=== PATIENT | male | born 1970 | race Caucasian/White ===

== ENCOUNTER 2017-05-18 12:53 | Inpatient (IN) | payer OTHER ==
[2017-05-18 16:04] VITALS: BMI 29.2
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
[2017-05-18] MEDS ORDERED: P-EPHED 60MG/TRIPROLIDI 2.5MG TABLET PO PRN (18:25)
[2017-05-18] MEDS ORDERED: guaiFENesin/D-METHORPHAN HB 10 ML UNIT-DOSE CUPS PO PRN (18:25)
[2017-05-18] MEDS ORDERED: MAG HYDROX/AL HYDROX/SIMETH 30 ML UNIT-DOSE CUP PO PRN (18:25)
[2017-05-18] MEDS ORDERED: MAGNESIUM HYDROX 2400MG/30ML ORAL SUSPENSION 30 ML CUP PO PRN (18:25)
[2017-05-18] MEDS ORDERED: IBUPROFEN 400 MG TABLET (FP) PO PRN ×2 (18:25→18:31)
[2017-05-18] MEDS ORDERED: MAGNESIUM CITRATE 300 ML BOTTLE PO PRN (18:25)
[2017-05-18] MEDS ORDERED: ACETAMINOPHEN 325 MG TABLET (FP) PO PRN (18:25)
[2017-05-18] MEDS ORDERED: LOPERAMIDE HCL 2 MG CAPSULE PO PRN (18:25)
[2017-05-18] MEDS ORDERED: MENTHOL/PHENOL 1 EACH UD MM PRN (18:25)
[2017-05-18] MEDS: THIAMINE HCL 100 MG TABLET (FP) PO SCH (21:30)
[2017-05-19 01:43] LABS: URINE APPEARANCE CLEAR; URINE BILIRUBIN NEGATIVE (NEGATIVE); URINE BLOOD NEGATIVE (NEGATIVE); URINE COLOR YELLOW; URINE GLUCOSE (UA) NEGATIVE (NEGATIVE); URINE KETONE NEGATIVE (NEGATIVE); URINE LEUK ESTERASE TRACE (NEGATIVE); URINE NITRITE NEGATIVE (NEGATIVE); URINE PROTEIN NEGATIVE (NEGATIVE)
[2017-05-19 01:59] LABS: URINE MUCUS RARE; URINE RBC 1 /hpf (0-3); URINE WBC 1 /hpf (3-5)
[2017-05-19] MEDS ORDERED: METHADONE HCL 10 MG TABLET PO SCH (09:15)
[2017-05-19] MEDS ORDERED: METHADONE HCL 40 MG DISPERSABLE TABLET ONE (10:30)
[2017-05-19] MEDS ORDERED: METHADONE HCL 10 MG TABLET ONE (10:30)
[2017-05-19] MEDS ORDERED: METHADONE 80 MG, METHADONE 20 MG PO ONE (10:30)
[2017-05-19] MEDS: PRENATAL VITAMINS W/ FOLIC ACID TABLET (FP) PO SCH (10:33)
[2017-05-19] MEDS: hydrOXYzine PAMOATE 50 MG CAPSULE (FP) PO PRN (10:35)
[2017-05-19 10:40] LABS: MCH 34.6 pg (25.7-33.7); MCHC 34.4 g/dl (32.0-35.9); MEAN CELL VOLUME 100.7 fl (80-96); MEAN PLT VOLUME 10.5 fl (7.5-11.1); PLATELET COUNT 136 K/MM3 (134-434); RDW 13.4 % (11.9-15.9); WHITE BLOOD COUNT 6.6 K/mm3 (4.0-10.0)
[2017-05-19 10:44] LABS: ALBUMIN 3.5 g/dl (3.4-5.0); ANION GAP 3 (8-16); BILIRUBIN,TOTAL 0.3 mg/dL (0.2-1.0); CALCIUM 8.9 mg/dL (8.5-10.1); CO2 35 mmol/L (21-32); CREATININE 0.9 mg/dL (0.7-1.3); GLUCOSE,RANDOM 72 mg/dL (74-106); SGOT/AST 27 U/L (15-37); SGPT/ALT 20 U/L (12-78); TOT PROT 6.8 g/dl (6.4-8.2)
[2017-05-19 10:45] LABS: ALK PHOS 132 U/L (45-117)
[2017-05-19] MEDS: THIAMINE HCL 100 MG TABLET (FP) PO SCH (21:44)
[2017-05-19] MEDS: diphenhydrAMINE HCL 50 MG CAPSULE PO PRN (21:45)
[2017-05-20] MEDS ORDERED: METHADONE HCL 10 MG TABLET ONE (05:34)
[2017-05-20] MEDS ORDERED: METHADONE HCL 40 MG DISPERSABLE TABLET ONE (05:35)
[2017-05-20] MEDS: METHADONE 80 MG, METHADONE 20 MG PO SCH (06:36)
[2017-05-20] MEDS: hydrOXYzine PAMOATE 50 MG CAPSULE (FP) PO PRN ×2 (10:15→14:35)
[2017-05-20] MEDS: PRENATAL VITAMINS W/ FOLIC ACID TABLET (FP) PO SCH (10:15)
[2017-05-20] MEDS: THIAMINE HCL 100 MG TABLET (FP) PO SCH (21:45)
[2017-05-20] MEDS: diphenhydrAMINE HCL 50 MG CAPSULE PO PRN (21:45)
[2017-05-21] MEDS: diphenhydrAMINE HCL 50 MG CAPSULE PO PRN (00:21)
[2017-05-21] MEDS ORDERED: METHADONE HCL 10 MG TABLET ONE (03:42)
[2017-05-21] MEDS ORDERED: METHADONE HCL 40 MG DISPERSABLE TABLET ONE (03:43)
[2017-05-21] MEDS: hydrOXYzine PAMOATE 50 MG CAPSULE (FP) PO PRN ×4 (03:57→21:38)
[2017-05-21] MEDS: METHADONE 80 MG, METHADONE 20 MG PO SCH (06:38)
--- NOTE | 2017-05-21 09:59 | EKG ---
Test Reason : Blood Pressure : / mmHG Vent. Rate : 065 BPM Atrial Rate : 065 BPM P-R Int : 150 ms QRS Dur : 100 ms QT Int : 456 ms P-R-T Axes : 062 022 047 degrees QTc Int : 474 ms NORMAL SINUS RHYTHM NORMAL ECG NO PREVIOUS ECGS AVAILABLE Confirmed by PREETI ROGERS MD ([id number]) on 05/21/2017 9:59:04 AM Referred By: Florina Rangel Confirmed By:PREETI ROGERS MD
[2017-05-21] MEDS: PRENATAL VITAMINS W/ FOLIC ACID TABLET (FP) PO SCH (10:20)
--- NOTE | 2017-05-21 11:42 | PN ---
[facility] Progress Note Note: low back pain,chronic pain,herniated disc l4,l5 did not want lidoderm patch,motrin 600 mgs po q 6 hrs prn,
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
[2017-05-21] MEDS: THIAMINE HCL 100 MG TABLET (FP) PO SCH (21:38)
[2017-05-21] MEDS ORDERED: traZODone HCL 50 MG TABLET (FP) PO SCH (22:00)
[2017-05-22] MEDS: hydrOXYzine PAMOATE 50 MG CAPSULE (FP) PO PRN ×3 (01:55→21:55)
[2017-05-22] MEDS ORDERED: METHADONE HCL 40 MG DISPERSABLE TABLET ONE (03:24)
[2017-05-22] MEDS ORDERED: METHADONE HCL 10 MG TABLET ONE (03:24)
[2017-05-22] MEDS: METHADONE 80 MG, METHADONE 20 MG PO SCH (06:21)
[2017-05-22] MEDS: IBUPROFEN 600 MG TABLET (FP) PO PRN (08:42)
[2017-05-22] MEDS: PRENATAL VITAMINS W/ FOLIC ACID TABLET (FP) PO SCH (11:02)
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
[2017-05-22] MEDS: THIAMINE HCL 100 MG TABLET (FP) PO SCH (21:54)
[2017-05-22] MEDS: QUEtiapine FUMARATE 25 MG TABLET (FP) PO SCH (21:54)
[2017-05-23] MEDS ORDERED: METHADONE HCL 10 MG TABLET ONE (03:33)
[2017-05-23] MEDS ORDERED: METHADONE HCL 40 MG DISPERSABLE TABLET ONE (03:33)
[2017-05-23] MEDS: METHADONE 80 MG, METHADONE 20 MG PO SCH (06:46)
[2017-05-23] MEDS: hydrOXYzine PAMOATE 50 MG CAPSULE (FP) PO PRN ×2 (06:48→21:43)
[2017-05-23] MEDS: PRENATAL VITAMINS W/ FOLIC ACID TABLET (FP) PO SCH (10:18)
[2017-05-23] MEDS: QUEtiapine FUMARATE 25 MG TABLET (FP) PO SCH (21:42)
[2017-05-23] MEDS: THIAMINE HCL 100 MG TABLET (FP) PO SCH (21:43)
[2017-05-23] MEDS: IBUPROFEN 600 MG TABLET (FP) PO PRN (21:44)
[2017-05-24] MEDS ORDERED: METHADONE HCL 40 MG DISPERSABLE TABLET ONE (05:10)
[2017-05-24] MEDS ORDERED: METHADONE HCL 10 MG TABLET ONE (05:10)
[2017-05-24] MEDS: METHADONE 80 MG, METHADONE 20 MG PO SCH (06:23)
[2017-05-24] MEDS: hydrOXYzine PAMOATE 50 MG CAPSULE (FP) PO PRN ×3 (06:24→21:42)
[2017-05-24] MEDS: PRENATAL VITAMINS W/ FOLIC ACID TABLET (FP) PO SCH (10:23)
[2017-05-24] MEDS: QUEtiapine FUMARATE 25 MG TABLET (FP) PO SCH (21:41)
[2017-05-24] MEDS: THIAMINE HCL 100 MG TABLET (FP) PO SCH (21:43)
[2017-05-25] MEDS ORDERED: METHADONE HCL 40 MG DISPERSABLE TABLET ONE (04:17)
[2017-05-25] MEDS ORDERED: METHADONE HCL 10 MG TABLET ONE (04:17)
[2017-05-25] MEDS: METHADONE 80 MG, METHADONE 20 MG PO SCH (06:30)
[2017-05-25] MEDS: hydrOXYzine PAMOATE 50 MG CAPSULE (FP) PO PRN (06:32)
[2017-05-25] MEDS: PRENATAL VITAMINS W/ FOLIC ACID TABLET (FP) PO SCH (10:01)
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
[2017-05-25] MEDS: GABAPENTIN 300 MG CAPSULE (FP) PO SCH ×2 (13:12→21:49)
[2017-05-25] MEDS: diphenhydrAMINE HCL 50 MG CAPSULE PO PRN (21:49)
[2017-05-25] MEDS: THIAMINE HCL 100 MG TABLET (FP) PO SCH (21:49)
[2017-05-25] MEDS: QUEtiapine FUMARATE 25 MG TABLET (FP) PO SCH (21:49)
[2017-05-26] MEDS ORDERED: METHADONE HCL 40 MG DISPERSABLE TABLET PO SCH (06:00)
[2017-05-26] MEDS ORDERED: METHADONE HCL 40 MG DISPERSABLE TABLET ONE (06:17)
[2017-05-26] MEDS ORDERED: METHADONE HCL 10 MG TABLET ONE (06:17)
[2017-05-26] MEDS: GABAPENTIN 300 MG CAPSULE (FP) PO SCH ×3 (06:46→21:24)
[2017-05-26] MEDS: METHADONE 80 MG, METHADONE 20 MG PO SCH (06:46)
[2017-05-26] MEDS: PRENATAL VITAMINS W/ FOLIC ACID TABLET (FP) PO SCH (10:19)
[2017-05-26] MEDS: hydrOXYzine PAMOATE 50 MG CAPSULE (FP) PO PRN ×3 (10:20→21:26)
[2017-05-26] MEDS: QUEtiapine FUMARATE 25 MG TABLET (FP) PO SCH (21:24)
[2017-05-26] MEDS: THIAMINE HCL 100 MG TABLET (FP) PO SCH (21:24)
[2017-05-27] MEDS ORDERED: METHADONE HCL 10 MG TABLET ONE (05:21)
[2017-05-27] MEDS ORDERED: METHADONE HCL 40 MG DISPERSABLE TABLET ONE (05:22)
[2017-05-27] MEDS: GABAPENTIN 300 MG CAPSULE (FP) PO SCH ×3 (06:26→21:40)
[2017-05-27] MEDS: METHADONE 80 MG, METHADONE 20 MG PO SCH (06:26)
[2017-05-27] MEDS: PRENATAL VITAMINS W/ FOLIC ACID TABLET (FP) PO SCH (10:45)
[2017-05-27] MEDS: hydrOXYzine PAMOATE 50 MG CAPSULE (FP) PO PRN ×2 (10:45→21:41)
[2017-05-27] MEDS: QUEtiapine FUMARATE 25 MG TABLET (FP) PO SCH (21:40)
[2017-05-27] MEDS: THIAMINE HCL 100 MG TABLET (FP) PO SCH (21:40)
[2017-05-28] MEDS ORDERED: METHADONE HCL 10 MG TABLET ONE (03:22)
[2017-05-28] MEDS ORDERED: METHADONE HCL 40 MG DISPERSABLE TABLET ONE (03:23)
[2017-05-28] MEDS: GABAPENTIN 300 MG CAPSULE (FP) PO SCH ×3 (06:34→21:36)
[2017-05-28] MEDS: METHADONE 80 MG, METHADONE 20 MG PO SCH (06:34)
[2017-05-28] MEDS: PRENATAL VITAMINS W/ FOLIC ACID TABLET (FP) PO SCH (10:24)
[2017-05-28] MEDS: hydrOXYzine PAMOATE 50 MG CAPSULE (FP) PO PRN (10:39)
[2017-05-28] MEDS: IBUPROFEN 600 MG TABLET (FP) PO PRN (16:37)
[2017-05-28] MEDS: QUEtiapine FUMARATE 25 MG TABLET (FP) PO SCH (21:36)
[2017-05-28] MEDS: diphenhydrAMINE HCL 50 MG CAPSULE PO PRN (21:37)
[2017-05-28] MEDS: HYDROCORTISONE 2.5% TOPICAL CREAM 30 GM TUBE TP SCH (21:38)
[2017-05-29] MEDS ORDERED: METHADONE HCL 10 MG TABLET ONE (03:45)
[2017-05-29] MEDS ORDERED: METHADONE HCL 40 MG DISPERSABLE TABLET ONE (03:46)
[2017-05-29] MEDS: METHADONE 80 MG, METHADONE 20 MG PO SCH (06:29)
[2017-05-29] MEDS: GABAPENTIN 300 MG CAPSULE (FP) PO SCH ×3 (06:29→21:38)
[2017-05-29] MEDS: hydrOXYzine PAMOATE 50 MG CAPSULE (FP) PO PRN ×3 (06:32→21:38)
[2017-05-29] MEDS: HYDROCORTISONE 2.5% TOPICAL CREAM 30 GM TUBE TP SCH ×2 (10:43→21:38)
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
[2017-05-29] MEDS: QUEtiapine FUMARATE 50 MG TABLET PO SCH (21:37)
[2017-05-30] MEDS: GABAPENTIN 300 MG CAPSULE (FP) PO SCH ×3 (06:54→21:48)
[2017-05-30] MEDS ORDERED: METHADONE HCL 40 MG DISPERSABLE TABLET ONE (09:38)
[2017-05-30] MEDS ORDERED: METHADONE HCL 10 MG TABLET ONE (09:38)
[2017-05-30] MEDS: METHADONE 80 MG, METHADONE 20 MG PO SCH (10:51)
[2017-05-30] MEDS: HYDROCORTISONE 2.5% TOPICAL CREAM 30 GM TUBE TP SCH ×2 (10:51→21:49)
[2017-05-30] MEDS: hydrOXYzine PAMOATE 50 MG CAPSULE (FP) PO PRN (13:14)
[2017-05-30] MEDS: QUEtiapine FUMARATE 50 MG TABLET PO SCH (21:48)
[2017-05-31] MEDS: GABAPENTIN 300 MG CAPSULE (FP) PO SCH ×3 (06:26→21:05)
[2017-05-31] MEDS ORDERED: METHADONE HCL 10 MG TABLET ONE (10:22)
[2017-05-31] MEDS ORDERED: METHADONE HCL 40 MG DISPERSABLE TABLET ONE (10:22)
[2017-05-31] MEDS: HYDROCORTISONE 2.5% TOPICAL CREAM 30 GM TUBE TP SCH ×2 (10:23→21:05)
[2017-05-31] MEDS: METHADONE 80 MG, METHADONE 20 MG PO SCH (10:23)
[2017-05-31] MEDS: hydrOXYzine PAMOATE 50 MG CAPSULE (FP) PO PRN ×3 (10:27→21:06)
[2017-05-31] MEDS: QUEtiapine FUMARATE 50 MG TABLET PO SCH (21:05)
[2017-06-01] MEDS: GABAPENTIN 300 MG CAPSULE (FP) PO SCH ×3 (06:27→21:41)
[2017-06-01] MEDS ORDERED: METHADONE HCL 10 MG TABLET ONE (08:58)
[2017-06-01] MEDS ORDERED: METHADONE HCL 40 MG DISPERSABLE TABLET ONE (08:59)
[2017-06-01] MEDS: METHADONE 80 MG, METHADONE 20 MG PO SCH (10:09)
[2017-06-01] MEDS: HYDROCORTISONE 2.5% TOPICAL CREAM 30 GM TUBE TP SCH ×2 (10:09→21:42)
[2017-06-01] MEDS: hydrOXYzine PAMOATE 50 MG CAPSULE (FP) PO PRN (10:10)
[2017-06-01] MEDS: QUEtiapine FUMARATE 50 MG TABLET PO SCH (21:41)
[2017-06-02] MEDS: GABAPENTIN 300 MG CAPSULE (FP) PO SCH ×3 (06:28→21:38)
[2017-06-02] MEDS ORDERED: METHADONE HCL 10 MG TABLET ONE (08:44)
[2017-06-02] MEDS ORDERED: METHADONE HCL 40 MG DISPERSABLE TABLET ONE (08:45)
[2017-06-02] MEDS: METHADONE 80 MG, METHADONE 20 MG PO SCH (10:19)
[2017-06-02] MEDS: HYDROCORTISONE 2.5% TOPICAL CREAM 30 GM TUBE TP SCH ×2 (10:20→21:39)
[2017-06-02] MEDS: hydrOXYzine PAMOATE 50 MG CAPSULE (FP) PO PRN (10:21)
[2017-06-02] MEDS: QUEtiapine FUMARATE 50 MG TABLET PO SCH (21:39)
[2017-06-03] MEDS: GABAPENTIN 300 MG CAPSULE (FP) PO SCH ×3 (06:20→21:34)
[2017-06-03] MEDS ORDERED: METHADONE HCL 40 MG DISPERSABLE TABLET ONE (09:16)
[2017-06-03] MEDS ORDERED: METHADONE HCL 10 MG TABLET ONE (09:16)
[2017-06-03] MEDS: METHADONE 80 MG, METHADONE 20 MG PO SCH (10:20)
[2017-06-03] MEDS: HYDROCORTISONE 2.5% TOPICAL CREAM 30 GM TUBE TP SCH ×2 (10:21→21:35)
[2017-06-03] MEDS: hydrOXYzine PAMOATE 50 MG CAPSULE (FP) PO PRN (13:20)
[2017-06-03] MEDS: QUEtiapine FUMARATE 50 MG TABLET PO SCH (21:34)
[2017-06-04] MEDS: GABAPENTIN 300 MG CAPSULE (FP) PO SCH ×3 (06:28→21:53)
[2017-06-04] MEDS ORDERED: METHADONE HCL 40 MG DISPERSABLE TABLET ONE (08:54)
[2017-06-04] MEDS ORDERED: METHADONE HCL 10 MG TABLET ONE (08:54)
[2017-06-04] MEDS: HYDROCORTISONE 2.5% TOPICAL CREAM 30 GM TUBE TP SCH ×2 (10:39→21:54)
[2017-06-04] MEDS: IBUPROFEN 600 MG TABLET (FP) PO PRN (10:40)
[2017-06-04] MEDS: METHADONE 80 MG, METHADONE 20 MG PO SCH (10:40)
[2017-06-04] MEDS: hydrOXYzine PAMOATE 50 MG CAPSULE (FP) PO PRN (10:44)
[2017-06-04] MEDS: QUEtiapine FUMARATE 50 MG TABLET PO SCH (21:54)
[2017-06-05] MEDS ORDERED: METHADONE HCL 40 MG DISPERSABLE TABLET PO SCH (06:00)
[2017-06-05] MEDS ORDERED: METHADONE HCL 10 MG TABLET ONE (06:29)
[2017-06-05] MEDS: GABAPENTIN 300 MG CAPSULE (FP) PO SCH ×3 (06:30→21:59)
[2017-06-05] MEDS ORDERED: METHADONE HCL 40 MG DISPERSABLE TABLET ONE (06:30)
[2017-06-05] MEDS: METHADONE 80 MG, METHADONE 20 MG PO SCH (06:30)
[2017-06-05] MEDS: HYDROCORTISONE 2.5% TOPICAL CREAM 30 GM TUBE TP SCH ×2 (10:34→21:59)
[2017-06-05] MEDS: hydrOXYzine PAMOATE 50 MG CAPSULE (FP) PO PRN ×2 (10:35→14:08)
[2017-06-05] MEDS: QUEtiapine FUMARATE 50 MG TABLET PO SCH (21:59)
[2017-06-05] MEDS: diphenhydrAMINE HCL 50 MG CAPSULE PO PRN (21:59)
[2017-06-06] MEDS ORDERED: METHADONE HCL 10 MG TABLET ONE (03:23)
[2017-06-06] MEDS ORDERED: METHADONE HCL 40 MG DISPERSABLE TABLET ONE (03:23)
[2017-06-06] MEDS: GABAPENTIN 300 MG CAPSULE (FP) PO SCH ×3 (06:23→22:03)
[2017-06-06] MEDS: METHADONE 80 MG, METHADONE 20 MG PO SCH (06:24)
[2017-06-06] MEDS: hydrOXYzine PAMOATE 50 MG CAPSULE (FP) PO PRN ×2 (09:43→14:16)
[2017-06-06] MEDS: HYDROCORTISONE 2.5% TOPICAL CREAM 30 GM TUBE TP SCH ×2 (09:43→22:44)
--- NOTE | 2017-06-06 15:30 | PN ---
Psychiatric Progress Note Vital Signs: Vital Signs Period Temp Pulse Resp BP Sys/Ann Pulse Ox Last 24 Hr 98.2 F 69 18-18 117/73 Date of Session: 06/06/17 Chief Complaint:: Kenneth very nervious,jittering,anxious." HPI: Patient addressed alcohol,cocaine and opioid dependence comorbid with substance induced mood disorder. Current Medications: Active Medications Generic Name Dose Route Start Last Admin Trade Name Freq PRN Reason Stop Dose Admin Acetaminophen 650 mg 05/18/17 18:25 Tylenol - PO Q4H PRN PAIN Al Hydroxide/Mg Hydroxide 30 ml 05/18/17 18:25 Mylanta Oral Suspension - PO Q6H PRN DYSPEPSIA Amitriptyline HCl 25 mg 06/06/17 15:30 Elavil - PO TID LES Diphenhydramine HCl 50 mg 05/18/17 22:00 06/05/17 21:59 Benadryl - PO 50 mg HSMR1 PRN Administration INSOMNIA Eucalyptus/Menthol/Phenol/Sorbitol 1 each 05/18/17 18:25 Cepastat Lozenge - MM Q4H PRN SORE THROAT Gabapentin 300 mg 05/25/17 14:00 06/06/17 14:15 Neurontin - PO 300 mg TID LES Administration Guaifenesin 10 ml 05/18/17 18:25 Robitussin Dm - PO Q6H PRN COUGH Hydrocortisone 1 applic 05/28/17 22:00 06/06/17 09:43 Anusol 2.5% Hc Cream - TP Not Given BID LES Hydroxyzine Pamoate 50 mg 05/18/17 18:25 06/06/17 14:16 Vistaril - PO 50 mg Q4H PRN Administration AGITATION Ibuprofen 600 mg 05/21/17 11:40 06/04/17 10:40 Motrin - PO 600 mg Q6H PRN Administration PAIN Loperamide HCl 4 mg 05/18/17 18:25 Imodium - PO Q6H PRN DIARRHEA Magnesium Citrate 300 ml 05/18/17 18:25 Citroma - PO Q48H PRN CONSTIPATION Magnesium Hydroxide 30 ml 05/18/17 18:25 Milk Of Magnesia - PO DAILY PRN CONSTIPATION Methadone HCl 80 mg/ Methadone 100 mg 06/05/17 06:00 06/06/17 06:24 HCl 20 mg PO 100 mg DAILY@0600 LES Administration Pseudoephedrine/Triprolidine 1 combo 05/18/17 18:25 Actifed - PO TID PRN NASAL CONGESTION Quetiapine Fumarate 50 mg 05/29/17 22:00 06/05/17 21:59 Seroquel - PO 50 mg HS LES Administration Current Side Effect: No Lab tests ordered: No Lab tests reviewed: Yes Provider note:: Chart was revuewed,patient was seen due to ongoing anxiety, nerviosness,mood instabilityPatient reports that he was responding good to small dosage of Elavil in the past to reduce his anxiety.Properties of Elavil has been discussed with the patient including side effects,benefits and dose adjustment.Elavil 25 mg po tid will be started today.Continue Neurontin 300 mg po tid and Seroquel 50 mg o hs. supportive therapy provided. Total face to face time:: 30 Mental Status Exam - Mental Status Exam Alert and Oriented to: Time, Place, Person Cognitive Function: Grossly Intact Patient Appearance: Unkempt Mood: Nervous, Anxious, Hopeful Affect: Labile Patient Behavior: Cooperative Speech Pattern: Clear Voice Loudness: Normal Thought Process: Goal Oriented Thought Disorder: Not Present Hallucinations: Denies Suicidal Ideation: Denies Homicidal Ideation: Denies Insight/Judgement: Fair Sleep: Difficulty falling asleep Appetite: Good Gait/Station: Normal Psychiatric Treatment Plan - Problem List (1) Alcohol dependence Current Visit: Yes (2) Cocaine dependence Current Visit: Yes (3) Methadone maintenance therapy patient Current Visit: Yes (4) Nicotine dependence Current Visit: Yes (5) Substance induced mood disorder Current Visit: Yes
[2017-06-06] MEDS: AMITRIPTYLINE HCL 25 MG TABLET (FP) PO SCH ×2 (17:42→22:03)
[2017-06-06] MEDS: QUEtiapine FUMARATE 50 MG TABLET PO SCH (22:03)
[2017-06-07] MEDS ORDERED: METHADONE HCL 10 MG TABLET ONE (03:23)
[2017-06-07] MEDS ORDERED: METHADONE HCL 40 MG DISPERSABLE TABLET ONE (03:23)
[2017-06-07] MEDS: AMITRIPTYLINE HCL 25 MG TABLET (FP) PO SCH ×3 (06:12→21:19)
[2017-06-07] MEDS: GABAPENTIN 300 MG CAPSULE (FP) PO SCH ×3 (06:12→21:19)
[2017-06-07] MEDS: METHADONE 80 MG, METHADONE 20 MG PO SCH (06:12)
[2017-06-07] MEDS: HYDROCORTISONE 2.5% TOPICAL CREAM 30 GM TUBE TP SCH ×2 (10:49→21:20)
[2017-06-07] MEDS: hydrOXYzine PAMOATE 50 MG CAPSULE (FP) PO PRN (10:50)
[2017-06-07] MEDS: QUEtiapine FUMARATE 50 MG TABLET PO SCH (21:19)
[2017-06-08] MEDS ORDERED: METHADONE HCL 10 MG TABLET ONE (03:29)
[2017-06-08] MEDS ORDERED: METHADONE HCL 40 MG DISPERSABLE TABLET ONE (03:29)
[2017-06-08] MEDS: AMITRIPTYLINE HCL 25 MG TABLET (FP) PO SCH ×3 (06:46→21:42)
[2017-06-08] MEDS: GABAPENTIN 300 MG CAPSULE (FP) PO SCH ×3 (06:46→21:43)
[2017-06-08] MEDS: METHADONE 80 MG, METHADONE 20 MG PO SCH (06:46)
[2017-06-08] MEDS: HYDROCORTISONE 2.5% TOPICAL CREAM 30 GM TUBE TP SCH ×2 (10:47→21:43)
[2017-06-08] MEDS: QUEtiapine FUMARATE 50 MG TABLET PO SCH (21:43)
[2017-06-09] MEDS ORDERED: METHADONE HCL 10 MG TABLET ONE (03:28)
[2017-06-09] MEDS ORDERED: METHADONE HCL 40 MG DISPERSABLE TABLET ONE (03:29)
[2017-06-09] MEDS: METHADONE 80 MG, METHADONE 20 MG PO SCH (06:36)
[2017-06-09] MEDS: GABAPENTIN 300 MG CAPSULE (FP) PO SCH ×3 (06:36→21:25)
[2017-06-09] MEDS: AMITRIPTYLINE HCL 25 MG TABLET (FP) PO SCH ×3 (06:36→21:25)
[2017-06-09] MEDS: HYDROCORTISONE 2.5% TOPICAL CREAM 30 GM TUBE TP SCH ×2 (10:39→21:25)
[2017-06-09] MEDS: QUEtiapine FUMARATE 50 MG TABLET PO SCH (21:25)
[2017-06-10] MEDS ORDERED: METHADONE HCL 10 MG TABLET ONE (03:33)
[2017-06-10] MEDS ORDERED: METHADONE HCL 40 MG DISPERSABLE TABLET ONE (03:33)
[2017-06-10] MEDS: AMITRIPTYLINE HCL 25 MG TABLET (FP) PO SCH ×3 (06:41→21:24)
[2017-06-10] MEDS: METHADONE 80 MG, METHADONE 20 MG PO SCH (06:41)
[2017-06-10] MEDS: GABAPENTIN 300 MG CAPSULE (FP) PO SCH ×3 (06:41→21:24)
[2017-06-10] MEDS: HYDROCORTISONE 2.5% TOPICAL CREAM 30 GM TUBE TP SCH ×2 (10:48→21:24)
[2017-06-10] MEDS: QUEtiapine FUMARATE 50 MG TABLET PO SCH (21:24)
[2017-06-11] MEDS ORDERED: METHADONE HCL 10 MG TABLET ONE (05:32)
[2017-06-11] MEDS ORDERED: METHADONE HCL 40 MG DISPERSABLE TABLET ONE (05:32)
[2017-06-11] MEDS: METHADONE 80 MG, METHADONE 20 MG PO SCH (06:28)
[2017-06-11] MEDS: AMITRIPTYLINE HCL 25 MG TABLET (FP) PO SCH ×3 (06:28→21:20)
[2017-06-11] MEDS: GABAPENTIN 300 MG CAPSULE (FP) PO SCH ×3 (06:28→21:20)
[2017-06-11] MEDS: HYDROCORTISONE 2.5% TOPICAL CREAM 30 GM TUBE TP SCH ×2 (10:34→21:20)
[2017-06-11] MEDS: hydrOXYzine PAMOATE 50 MG CAPSULE (FP) PO PRN (10:34)
[2017-06-11] MEDS: QUEtiapine FUMARATE 50 MG TABLET PO SCH (21:20)
[2017-06-12] MEDS ORDERED: METHADONE HCL 40 MG DISPERSABLE TABLET ONE (03:26)
[2017-06-12] MEDS ORDERED: METHADONE HCL 10 MG TABLET ONE (03:26)
[2017-06-12] MEDS: METHADONE 80 MG, METHADONE 20 MG PO SCH (06:11)
[2017-06-12] MEDS: AMITRIPTYLINE HCL 25 MG TABLET (FP) PO SCH ×3 (06:12→21:44)
[2017-06-12] MEDS: GABAPENTIN 300 MG CAPSULE (FP) PO SCH ×3 (06:12→21:44)
[2017-06-12 07:01] VITALS: PULSE 78
[2017-06-12] MEDS: HYDROCORTISONE 2.5% TOPICAL CREAM 30 GM TUBE TP SCH ×2 (10:40→21:44)
[2017-06-12] MEDS: hydrOXYzine PAMOATE 50 MG CAPSULE (FP) PO PRN (10:41)
[2017-06-12] MEDS: QUEtiapine FUMARATE 50 MG TABLET PO SCH (21:44)
[2017-06-13] MEDS ORDERED: METHADONE HCL 10 MG TABLET ONE (05:22)
[2017-06-13] MEDS ORDERED: METHADONE HCL 40 MG DISPERSABLE TABLET ONE (05:23)
[2017-06-13] MEDS ORDERED: METHADONE HCL 10 MG TABLET PO SCH (06:00)
[2017-06-13] MEDS: GABAPENTIN 300 MG CAPSULE (FP) PO SCH ×3 (07:26→22:03)
[2017-06-13] MEDS: METHADONE 80 MG, METHADONE 20 MG PO SCH (07:26)
[2017-06-13] MEDS: AMITRIPTYLINE HCL 25 MG TABLET (FP) PO SCH ×3 (07:26→22:03)
[2017-06-13] MEDS: HYDROCORTISONE 2.5% TOPICAL CREAM 30 GM TUBE TP SCH ×2 (10:33→22:03)
[2017-06-13] MEDS: QUEtiapine FUMARATE 50 MG TABLET PO SCH (22:03)
[2017-06-14] MEDS ORDERED: METHADONE HCL 10 MG TABLET ONE (05:17)
[2017-06-14] MEDS ORDERED: METHADONE HCL 40 MG DISPERSABLE TABLET ONE (05:18)
[2017-06-14] MEDS: METHADONE 80 MG, METHADONE 20 MG PO SCH (06:13)
[2017-06-14] MEDS: GABAPENTIN 300 MG CAPSULE (FP) PO SCH (06:14)
[2017-06-14] MEDS: AMITRIPTYLINE HCL 25 MG TABLET (FP) PO SCH (06:14)
[2017-06-14 07:03] VITALS: BP 119/75; TEMP 98.1
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
[2017-06-14] MEDS: HYDROCORTISONE 2.5% TOPICAL CREAM 30 GM TUBE TP SCH (10:52)
== END 2017-06-14 11:00 | disposition home or self-care (01) | DRG 895 ==
LOC: YASAS 12:53 → Y5N 18:29
PROVIDERS: ADMIT Psychiatry & Neurology Psychiatry; ATTEND Psychiatry & Neurology Psychiatry
PROC: HZ42ZZZ Group Counseling for Substance Abuse Treatment, Cognitive-Behavioral (ICD-10-PCS; principal; 2017-06-14)
DX: F10.20 Alcohol dependence, uncomplicated (principal); F14.20 Cocaine dependence, uncomplicated; F17.210 Nicotine dependence, cigarettes, uncomplicated; F19.24 Other psychoactive substance dependence with psychoactive substance-induced mood disorder; F43.10 Post-traumatic stress disorder, unspecified
CPT/HCPCS: 36415; 71010-TC; 80053; 81003; 81015; 85027; 86593; 93005; 93010

== ENCOUNTER 2023-05-02 10:14 | Inpatient (IN) | payer OTHER ==
[2023-05-02 10:53] VITALS: BMI 26.2
[2023-05-02] MEDS ORDERED: BISMUTH SUBSALICYLATE 262 MG/15 ML BTL PO PRN (11:29)
[2023-05-02] MEDS ORDERED: guaiFENesin 600 MG TABLET.ER (FP) PO PRN (11:29)
[2023-05-02] MEDS ORDERED: NICOTINE 10 MG CARTRIDGE (INHALER) IH PRN (11:29)
[2023-05-02] MEDS ORDERED: DICYCLOMINE HCL 10 MG CAPSULE PO PRN (11:29)
[2023-05-02] MEDS ORDERED: BENZONATATE 200 MG CAPSULE PO PRN (11:29)
[2023-05-02] MEDS ORDERED: NICOTINE POLACRILEX 2 MG GUM BUC PRN (11:29)
[2023-05-02] MEDS ORDERED: methaDONE HCL 10 MG TABLET (FOR DETOX USE ONLY) PO ONE (11:29)
[2023-05-02] MEDS ORDERED: MAGNESIUM HYDROX 2400MG/30ML ORAL SUSPENSION 30 ML CUP PO PRN (11:29)
[2023-05-02] MEDS ORDERED: NALOXONE HCL (KLOXXADO) 8 MG SPRAY NS PRN (11:29)
[2023-05-02] MEDS ORDERED: MAG HYDROX/AL HYDROX/SIMETH 30 ML UNIT-DOSE CUP PO PRN (11:29)
[2023-05-02] MEDS ORDERED: BENZOCAINE/MENTHOL (CHLORASEPTIC ) LOZENGE MM PRN (11:29)
[2023-05-02] MEDS ORDERED: LOPERAMIDE HCL 2 MG CAPSULE PO PRN (11:29)
[2023-05-02] MEDS ORDERED: ACETAMINOPHEN 325 MG TABLET (FP) PO PRN (11:29)
[2023-05-02] MEDS ORDERED: IBUPROFEN 400 MG TABLET (FP) PO PRN (11:29)
[2023-05-02] MEDS ORDERED: IBUPROFEN 600 MG TABLET (FP) PO PRN (11:29)
[2023-05-02] MEDS ORDERED: POLYETHYLENE GLYCOL (HEALTHYLAX) 3350 17 GM PACKET PO PRN (11:29)
[2023-05-02] MEDS ORDERED: NALOXONE HCL 0.4 MG/ML VIAL IM PRN (11:29)
[2023-05-02] MEDS ORDERED: methaDONE HCL 10 MG TABLET (FOR DETOX USE ONLY) ONE (12:25)
[2023-05-02] MEDS: METHOCARBAMOL 500 MG TABLET PO PRN (17:14)
[2023-05-02] MEDS ORDERED: MELATONIN 5 MG TABLETS PO SCH (22:00)
[2023-05-02] MEDS: THIAMINE HCL 100 MG TABLET (FP) PO SCH (22:09)
[2023-05-03] MEDS: METHOCARBAMOL 500 MG TABLET PO PRN ×2 (01:40→10:13)
[2023-05-03] MEDS: cloNIDine HCL 0.1 MG TABLET PO PRN ×2 (07:29→23:33)
[2023-05-03] MEDS ORDERED: diazePAM 5 MG TABLET PO PRN (09:40)
[2023-05-03] MEDS: QUEtiapine FUMARATE 200 MG TABLET PO SCH (10:13)
[2023-05-03] MEDS: PRENATAL VITAMINS W/ FOLIC ACID TABLET (FP) PO SCH (10:13)
[2023-05-03 10:56] LABS: HEMATOCRIT 38.9 % (35.4-49); HEMOGLOBIN 12.9 GM/dL (11.7-16.9); MCH 31.4 pg (25.7-33.7); MCHC 33.3 g/dl (32.0-35.9); MEAN CELL VOLUME 94.3 fl (80-96); MEAN PLT VOLUME 10.4 fl (7.5-11.1); PLATELET COUNT 210 10^3/uL (134-434); RBC 4.13 M/mm3 (4.00-5.60); RDW 12.7 % (11.9-15.9); WHITE BLOOD COUNT 6.9 K/mm3 (4.0-10.0)
[2023-05-03 11:54] LABS: POTASSIUM 4.3 mmol/L (3.5-5.1)
[2023-05-03 12:02] LABS: CALCIUM 9.8 mg/dL (8.5-10.1)
[2023-05-03 12:03] LABS: ALBUMIN 3.9 g/dl (3.4-5.0); BLOOD UREA NITROGEN 18.1 mg/dL (7-18)
[2023-05-03 12:06] LABS: CREATININE 1.2 mg/dL (0.55-1.3)
[2023-05-03 12:07] LABS: BILIRUBIN,TOTAL 0.3 mg/dL (0.2-1); TOT PROT 7.6 g/dl (6.4-8.2)
[2023-05-03] MEDS ORDERED: QUEtiapine FUMARATE 400 MG TABLET PO SCH (22:00)
[2023-05-03] MEDS: THIAMINE HCL 100 MG TABLET (FP) PO SCH (22:27)
[2023-05-04 09:07] VITALS: RESP 18
[2023-05-04] MEDS ORDERED: methaDONE HCL 10 MG TABLET (FOR DETOX USE ONLY) PO ONE (10:00)
[2023-05-04] MEDS: PRENATAL VITAMINS W/ FOLIC ACID TABLET (FP) PO SCH (10:07)
[2023-05-04] MEDS: QUEtiapine FUMARATE 200 MG TABLET PO SCH (10:07)
[2023-05-04 13:08] VITALS: BP 141/85; PULSE 90; TEMP 96.9
[2023-05-06] MEDS ORDERED: methaDONE HCL 10 MG TABLET (FOR DETOX USE ONLY) PO ONE (10:00)
== END 2023-05-04 15:07 | disposition left against medical advice (07) | DRG 894 ==
LOC: YASAS 10:14 → Y6N 11:52
PROVIDERS: ADMIT Allergy & Immunology; ATTEND Surgery
PROC: HZ2ZZZZ Detoxification Services for Substance Abuse Treatment (ICD-10-PCS; principal; 2023-05-02)
DX: F11.23 Opioid dependence with withdrawal (principal); F14.20 Cocaine dependence, uncomplicated; F19.282 Other psychoactive substance dependence with psychoactive substance-induced sleep disorder; F19.280 Other psychoactive substance dependence with psychoactive substance-induced anxiety disorder; F17.210 Nicotine dependence, cigarettes, uncomplicated; F19.24 Other psychoactive substance dependence with psychoactive substance-induced mood disorder; F39 Unspecified mood [affective] disorder; F43.10 Post-traumatic stress disorder, unspecified; M54.41 Lumbago with sciatica, right side; M54.42 Lumbago with sciatica, left side; G89.29 Other chronic pain
CPT/HCPCS: 36415; 71046-TC-FY; 80053; 85027; 86780; 87635; 87811; 93005; 93010